=== PATIENT | female | born 1985 | race Caucasian/White ===

== ENCOUNTER 2023-08-18 11:50 | Emergency (ER) | payer BC, SELFPAY ==
[2023-08-18 11:55] VITALS: BP 130/84
[2023-08-18 12:11] VITALS: BP 125/88
[2023-08-18 12:20] VITALS: BMI 33.7
[2023-08-18 12:44] LABS: % Basophils 0.2 % (0-2); % Eosinophils 1.7 % (0-6); % Lymphocytes 28.9 % (20.5-51.1); % Monocytes 8.7 % (1.7-9.3); % Neutrophils 60.5 % (42.2-75.2); Absolute Eosinophils 0.1 10^3/uL (0-0.7); Absolute Lymphocytes 1.2 10^3/uL (1.2-3.4); Absolute Monocytes 0.4 10^3/uL (0.1-0.6); Absolute Neutrophils 2.4 10^3/uL (1.4-6.5); Hematocrit 38.8 % (37.0-47.0); Hemoglobin 12.4 g/dL (12.0-16.0); Mean Corpuscular Volume 78.2 fL (81.0-99.0); Mean Platelet Volume 11.5 fL (7.4-10.4); Nucleated Red Blood Cells % 0 %; Platelet Count 252 10^3/uL (130-400); Red Blood Cell Count 4.96 10^6/uL (4.20-5.40); Red Cell Dist. Width 13.2 % (11.5-14.5)
[2023-08-18 12:59] LABS: ALT (SGPT) 41 U/L (0-35); AST (SGOT) 43 U/L (14-36); Albumin 4.5 g/dl (3.5-5.0); Alkaline Phosphatase 61 U/L (38-126); Blood Urea Nitrogen 13 mg/dl (7-17); Calcium 9.4 mg/dl (8.4-10.2); Carbon Dioxide 25 mmol/L (22-30); Chloride 103 mmol/L (98-107); Estimated Creatinine Clearance 116 ml/min; Glucose 93 mg/dl (70-99); Potassium 4.7 mmol/L (3.5-5.1); Sodium 138 mmol/L (135-145); Total Protein 7.6 g/dl (6.3-8.2); Troponin I < 0.012 ng/ml; eGFR > 60.00
[2023-08-18 13:00] VITALS: BP 109/86
--- NOTE | 2023-08-18 13:05 | EDRN ---
Tiffanie Ross PA in room w/ pt at this time.
--- NOTE | 2023-08-18 13:09 | EDRN ---
Pt is ok to drink water per Tiffanie AZAR and he brought pt some water.
--- NOTE | 2023-08-18 13:11 | ED.GENMED ---
History of Present Illness
General
Chief Complaint: Chest Pain
Time Seen by Provider: 08/18/23 12:04
History of Present Illness
History of Present Illness:
38-year-old female with history of GERD presents the emergency department for evaluation of chest discomfort rating to the thoracic back for the past 4 days. Pain waxes and wanes and is associated with tingling and numbness to the left hand. She
also notes that there is some pleuritic discomfort as well. Denies any calf pain or leg swelling. Denies shortness of breath, fever, chills, sweats, or coughing. She felt increased indigestion over the past 2 days but has been taking her
omeprazole for this. She notes that from February through July she underwent multiple rounds of in vitro fertilization, not currently
Review of Systems
Review of Systems
Allergies reviewed?: Yes
All Other Systems: ROS reviewed and negative except as documented in HPI and ROS
Phy Exam
Physical Exam
Physical Exam:
GEN: Well appearing, NAD, WDWN
Eyes: PERRLA, EOMs intact, no scleral icterus
HENT: NCAT, oral mucosa moist
Lungs: CTAB, no wheezes, rales, rhonchi, normal chest wall excursion
Cardiac: RRR, no M/R/G, no peripheral edema. Radial pulses 2+ bilat
Abdomen: S, NT, ND, NABS, no masses or hepatosplenomegaly
Neuro: AO x 3
MSK: No gross deformity or ecchymosis. No edema. No digital clubbing
Skin: No rashes, petechiae. Normal color, no pallor or jaundice.
Psych: Calm, cooperative, proper hygiene
Scores
Heart Score for Chest Pain Patients
STEMI patient?: No
History: Slightly or Non-Suspicious
ECG: Normal
Age: </= 45 years
Risk Factors: No Risk Factors
Troponin: </= Normal Limit
Heart Score for Chest Pain Patients: 0
Heart Score Risk: 2.5% MACE over next 6 weeks
Course
Orders/Labs/Results
Orders:
Orders
08/18/23 11:51
EKG [Electrocardiogram (*1)] Urgent
Reason for Study: Abnormal EKG
08/18/23 11:52
EKG- Treatment ONCE
08/18/23 12:15
Cardiac Monitoring- Treatment ONCE
IV Insert/Care/Rem.- Treatment PRN
08/18/23 12:22
Complete Blood Count/With Diff Urgent
Comprehensive Metabolic Panel Urgent
HCG, Serum Qualitative Screen Urgent
Comment: HCG QUAL ADDED ON BY FLOOR 2PM 08-18-23
Troponin I Urgent
08/18/23 13:17
D-Dimer Urgent
08/18/23 14:00
Add On- LAB Urgent
Tests Added?: HCG qual
CT Chest Pe Study Urgent
Comment:
Reason For Exam: chest pain/SOB/elevated dimer
Abnormal Lab Results
08/18/23 08/18/23
12:22 13:17
WBC 4.0 L 10^3/uL
(4.8-10.8)
MCV 78.2 L fL
(81.0-99.0)
MCH 25.0 L pg
(27.0-31.0)
MCHC 32.0 L g/dL
(33.0-37.0)
MPV 11.5 H fL
(7.4-10.4)
D-Dimer 0.66 H ug/mlFEU
(0.00-0.50)
AST 43 H U/L
(14-36)
ALT 41 H U/L
(0-35)
08/18/23 12:22
08/18/23 12:22
Vital Signs
Initial and Last Documented VS:
Initial Vital Signs
Temp Pulse Resp BP Pulse Ox
98.9 F 72 20 130/84 100
08/18/23 11:55 08/18/23 11:55 08/18/23 11:55 08/18/23 11:55 08/18/23 11:55
Last Documented Vital Signs
Temp Pulse Resp BP Pulse Ox
98.9 F 69 16 110/70 100
08/18/23 11:55 08/18/23 16:25 08/18/23 14:11 08/18/23 16:25 08/18/23 14:11
MDM/Problems Addressed
MDM/Problems Addressed:
Patient's workup is unremarkable for acute disease. She was identified to have incidental finding of axillary adenopathy bilaterally, recommend outpatient breast imaging follow-up with her primary care physician. Unclear etiology to chest pain,
recommend NSAIDs
Comment
Comment:
EKG independently interpreted by me shows a sinus bradycardia at a rate of [address] changes concerning for ischemia, QTc of 401
*Critical Care Note
Total Time (30-74mins, 75-104mins- exclusive of procedures): Not Applicable
ED Attending Note
-
Portions of this chart may have been created with voice recognition software.� Occasional wrong word or��sound alike� substitutions may have occurred due to the inherent limitations of voice recognition software.
Discharge Plan
Departure
Patient Disposition: Home (Routine Discharge)
Date of Disposition: 08/18/23
Time of Disposition: 16:18
Patient with high blood pressure during this ER visit?: No
Discharge Problem:
Atypical chest pain
Instructions: Chest Pain That Is Not Caused by the Heart (DC)
Referrals:
Hamlet Eric I., DO [Family Provider] -
Activity Restrictions/Additional Instructions:
Your CAT scan showed some lymph node swelling in both armpits the source of this is not clear. It is recommended that you undergo breast imaging such as a mammogram or ultrasound to further assess if there could be a breast abnormality causing
these lymph nodes to swell up
Interventions
Interventions:
*Risk Screen - Suicide Last Done: 08/18/23 11:57
*General Assessment Last Done: 08/18/23 11:57
*Neglect/Abuse Screening Last Done: 08/18/23 11:57
ED- Fall Risk Assessment Last Done: 08/18/23 12:20
*Nursing Disposition Last Done: 08/18/23 16:25
ED- Cardiac Assessment Last Done: 08/18/23 12:20
Discharge Date and Time
Discharge Date/Time: 08/18/23 16:25
Print Language: GABONESE
[2023-08-18 13:42] LABS: D-Dimer 0.66 ug/mlFEU (0.00-0.50)
[2023-08-18 14:11] VITALS: BP 119/94
--- NOTE | 2023-08-18 14:13 | EDRN ---
Pt going to RP at this time. Report given to Keira TAVAREZ.
[2023-08-18 15:17] LABS: HCG, Serum Qualitative Screen Negative
[2023-08-18 16:24] VITALS: BP 110/70
[2023-08-18 16:25] VITALS: BP 110/70
== END 2023-08-18 16:25 | disposition home or self-care (01) ==
LOC: EMR 11:50
PROVIDERS: Physician Assistant; EMERGENCY PHYSICIAN Emergency Medicine; FAMILY PHYSICIAN Internal Medicine
DX: R07.89 Other chest pain (principal); K21.9 Gastro-esophageal reflux disease without esophagitis
CPT/HCPCS: 99284; 71275; 80053; 84484; 84703; 85025; 85379; 93005; Q9967

== ENCOUNTER → 2023-09-15 12:32 | Outpatient (REF) | payer BC, SELFPAY | LOC: WDC 12:32 | PROVIDERS: ATTENDING PHYSICIAN Nurse Practitioner Family | DX: Z12.39 Encounter for other screening for malignant neoplasm of breast (principal); Z12.31 Encounter for screening mammogram for malignant neoplasm of breast | CPT/HCPCS: 77063; 77067 ==

== ENCOUNTER → 2023-11-23 17:30 | Outpatient (REF) | payer BC, SELFPAY | LOC: PNTC 17:30 | PROVIDERS: ATTENDING PHYSICIAN Obstetrics & Gynecology | DX: O09.819 Supervision of pregnancy resulting from assisted reproductive technology, unspecified trimester (principal); O09.529 Supervision of elderly multigravida, unspecified trimester; O36.80X0 Pregnancy with inconclusive fetal viability, not applicable or unspecified; O09.511 Supervision of elderly primigravida, first trimester | CPT/HCPCS: 76801 ==

== ENCOUNTER → 2023-12-07 13:27 | Outpatient (REF) | payer BC, SELFPAY | LOC: PNTC 13:27 | PROVIDERS: ATTENDING PHYSICIAN Obstetrics & Gynecology | DX: O09.529 Supervision of elderly multigravida, unspecified trimester (principal); O09.819 Supervision of pregnancy resulting from assisted reproductive technology, unspecified trimester | CPT/HCPCS: 76801; 76813 ==

== ENCOUNTER → 2024-04-03 09:55 | Outpatient (REF) | payer OTHER, SELFPAY | LOC: PNTC 09:55 | PROVIDERS: ATTENDING PHYSICIAN Obstetrics & Gynecology | DX: Z31.83 Encounter for assisted reproductive fertility procedure cycle (principal); O44.40 Low lying placenta NOS or without hemorrhage, unspecified trimester | CPT/HCPCS: 76816; 76817 ==